=== PATIENT | male | born 1945 | race Two or more races ===

== ENCOUNTER 2021-04-07 07:53 | Inpatient (IN) | payer MEDICARE, OTHER ==
[~2021-04-07] VITALS: Ht 188 cm; Wt 75.3 kg
--- NOTE | 2021-04-07 08:00 | NUR ---
VENKATA [id number] FROM [facility] C/O R HIP 09/06 AND R KNEE PAIN 09/06 NON TRAUMATIC PER EMS "HE WAS JUST TRYING TO SIT IN HIS BED". SLY PEDAL PULSES PRESENT. IN ROOM AIR AND DENIES SOB. RESPIRATION REGULAR AND UNLABORED. WILL CONTINUE TO MONITOR THE PATIENT.
[2021-04-07] MEDS ORDERED: ONDANSETRON HCL/PF 4 MG/2 ML VIAL ONE (08:15)
[2021-04-07] MEDS ORDERED: MORPHINE SULFATE INJ 4 MG/ML DISP.SYRIN ONE (08:16)
--- NOTE | 2021-04-07 08:25 | NUR ---
IV LINE IS ESTABLISHED, BLOOD SPECIMEN COLLECTED AND SENT TO THE LAB. THE LINE IS SALINE LOCKED.
[2021-04-07] MEDS ORDERED: ONDANSETRON HCL/PF 4 MG/2 ML VIAL IV ONE (08:30)
[2021-04-07] MEDS ORDERED: MORPHINE SULFATE INJ 2 MG/ML DISP.SYRIN IV ONE (08:30)
--- NOTE | 2021-04-07 08:30 | NUR ---
X-RAY TECH AT THE BEDSIDE
--- NOTE | 2021-04-07 09:14 | NUR ---
Johnnie dunn in [facility] - 04/07/21 at 0935 by BRENT TRANSFERED DOC SIGNED BY PATIENT AND .
[2021-04-07 09:40] LABS: BASOPHILS % (AUTO) 0.2 % (0.0-2.0); HEMATOCRIT 44 % (39-51); HEMOGLOBIN 14.5 g/dL (13.5-17.5); LYMPHOCYTES # (AUTO) 0.8 K/uL (0.8-4.8); LYMPHOCYTES % (AUTO) 8.2 % (20.0-44.0); MEAN CORPUSCULAR HGB CONC 33 g/dl (31.0-36.0); MEAN CORPUSCULAR VOLUME 95 fL (80-96); MONOCYTES # (AUTO) 0.5 K/uL (0.1-1.30); MONOCYTES % (AUTO) 5.6 % (2.0-12.0); PLATELET COUNT (AUTO) 211 K/uL (150-450); RED BLOOD CELL COUNT(AUTO) 4.68 MIL/uL (4.5-6.0); WHITE BLOOD COUNT (AUTO) 9.3 K/uL (4.3-11.0)
[2021-04-07 09:47] LABS: CARBON DIOXIDE 24 mmol/L (21-32); CHLORIDE 103 mmol/L (98-107); GLUCOSE 161 mg/dL (74-106); POTASSIUM 4.5 mmol/L (3.5-5.1); SODIUM SERUM 141 mmol/L (136-145); UREA NITROGEN, BLOOD 25 mg/dL (7-18)
--- NOTE | 2021-04-07 09:56 | NUR ---
COVID SWAB DONE AND SENT TO THE [facility]
--- NOTE | 2021-04-07 11:20 | NUR ---
ORTHO DR. PATHAK SPEAKING WITH DR. BURRELL.
--- NOTE | 2021-04-07 11:45 | NUR ---
MOVE SHEET SUBMITTED AND CALLED FOR BED.
--- NOTE | 2021-04-07 13:47 | NUR ---
[facility] HEAD GREENSKEEPER FROM [facility] [phone]
--- NOTE | 2021-04-07 15:54 | NUR ---
[facility] SUPERVISOR FINISHING ROOM FROM [facility] [phone] ROBB TO CALL US BACK.
--- NOTE | 2021-04-07 16:47 | NUR ---
CALLED G[facility] TRAY SETTER FROM [facility] [phone] ROBB TO CALL US BACK. CALLED AGAIN
--- NOTE | 2021-04-07 17:26 | NUR ---
CALLED GARLAND TYPE ROLLING MACHINE OPERATOR FROM [facility] [phone] ROBB TO CALL US BACK. CALLED AGAIN
--- NOTE | 2021-04-07 18:20 | NUR ---
CALLED DR. ROBB [phone] AND TEXTED FOR ORDERS.
--- NOTE | 2021-04-07 18:53 | NUR ---
RECEIVED ADMITTING ORDERS FROM DR ROBB. THE ORDERS ARE READ BACK, VERIFIED. NOTED AND CARRIED OUT.
[2021-04-07] MEDS ORDERED: ACETAMINOPHEN 325 MG TABLET ONE (18:56)
[2021-04-07] MEDS ORDERED: hydrALAZINE HCL IV 20 MG VIAL IV SCH (19:00)
[2021-04-07] MEDS ORDERED: ACETAMINOPHEN 325 MG TABLET PO PRN (19:00)
[2021-04-07] MEDS ORDERED: ZOLPIDEM TARTRATE 5 MG TABLET PO PRN (19:00)
[2021-04-07] MEDS ORDERED: MORPHINE SULFATE INJ 2 MG/ML DISP.SYRIN IV SCH ×2 (19:00)
[2021-04-07] MEDS ORDERED: ONDANSETRON HCL/PF 4 MG/2 ML VIAL IV SCH (19:00)
[2021-04-07] MEDS ORDERED: CLONIDINE HCL 0.1 MG TABLET PO PRN (19:00)
--- NOTE | 2021-04-07 19:02 | NUR ---
GOT BED 309-1 AFTER 193
--- NOTE | 2021-04-07 19:44 | NUR ---
REPORT GIVEN TO NURSE ESTUARDO FOR BRIA
--- NOTE | 2021-04-07 19:52 | NUR ---
report given to flory loaiza
--- NOTE | 2021-04-07 20:15 | NUR ---
MS VEHICLE ASSEMBLY INSPECTOR NOTE PT TRANSPORTED VIA GURNEY TO UNIT AT THIS TIME. PT ADMITTED TO MS UNIT FROM ER FOR ADMITTING DX OF RIGHT PATELLAR FRACTURE. A/O X2-3. PT IS STABLE ON ROOM AIR. NO SOB OR S/S OF RESPIRATORY DISTRESS NOTED. PT DENIES ANY PAIN OR DISCOMFORT AT THIS TIME, WAS GIVEN MORPHINE IN THE ER FOR R KNEE PAIN. SKIN IS INTACT. IV ACCESS R AC 20 GAUGE SL, INTACT AND PATENT. PT ORIENTED TO UNIT, ROOM, AND STAFF. PT BELONGINGS LIST VERIFIED AND PUT IN CHART. SAFETY PRECAUTIONS IN PLACE. BED IN LOWEST LOCKED POSITION, HOB ELEVATED, SIDE RAILS UP X2, AND CALL LIGHT AND TABLE WITHIN REACH. WILL CONTINUE WITH PLAN OF CARE.
[2021-04-07 21:30] VITALS: BP 156/69
[2021-04-08 06:25] LABS: CALCIUM, SERUM 9.1 mg/dL (8.5-10.1); CARBON DIOXIDE 21 mmol/L (21-32); CHLORIDE 107 mmol/L (98-107); CREATININE 1.6 mg/dL (0.6-1.3); GLUCOSE 119 mg/dL (74-106); POTASSIUM 3.9 mmol/L (3.5-5.1); SODIUM SERUM 140 mmol/L (136-145); UREA NITROGEN, BLOOD 30 mg/dL (7-18)
[2021-04-08 06:34] LABS: BASOPHILS % (AUTO) 0.1 % (0.0-2.0); EOSINOPHILS % (AUTO) 0.5 % (0.0-6.0); HEMATOCRIT 42 % (39-51); LYMPHOCYTES # (AUTO) 1.5 K/uL (0.8-4.8); LYMPHOCYTES % (AUTO) 22.2 % (20.0-44.0); MEAN CORPUSCULAR HGB CONC 33 g/dl (31.0-36.0); MEAN CORPUSCULAR VOLUME 94 fL (80-96); MONOCYTES # (AUTO) 0.7 K/uL (0.1-1.30); MONOCYTES % (AUTO) 9.9 % (2.0-12.0); NEUTROPHILS # (AUTO) 4.5 K/uL (1.8-8.9); NEUTROPHILS % (AUTO) 67.3 % (43.0-81.0); PLATELET COUNT (AUTO) 179 K/uL (150-450); RED BLOOD CELL COUNT(AUTO) 4.47 MIL/uL (4.5-6.0); WHITE BLOOD COUNT (AUTO) 6.8 K/uL (4.3-11.0)
--- NOTE | 2021-04-08 06:34 | NUR ---
MS RN CLOSING NOTE PT AWAKE IN BED. A/O X2-3. PT IS STABLE ON ROOM AIR. NO SOB OR S/S OF RESPIRATORY DISTRESS NOTED. PT DENIES ANY PAIN OR DISCOMFORT AT THIS TIME. IV ACCESS R AC 20 GAUGE SL, INTACT AND PATENT. ALL NEEDS MET AT THIS TIME. SAFETY PRECAUTIONS IN PLACE AT ALL TIMES. BED IN LOWEST LOCKED POSITION, HOB ELEVATED, SIDE RAILS UP X2, AND CALL LIGHT AND TABLE WITHIN REACH. WILL ENDORSE TO ONCOMING NURSE FOR BRIA.
--- NOTE | 2021-04-08 07:19 | NUR ---
RN OPENING NOTE- PT AWAKE IN BED. A/O X2-3. PT IS STABLE ON ROOM AIR. NO SOB OR S/S OF RESPIRATORY DISTRESS NOTED. RT KNEE ELEVATED / PILLOWS. PT DENIES ANY PAIN OR DISCOMFORT AT THIS TIME. IV ACCESS R AC 20 GAUGE SL, INTACT AND PATENT. ALL NEEDS MET AT THIS TIME. SAFETY PRECAUTIONS IN PLACE AT ALL TIMES. BED IN LOWEST LOCKED POSITION, HOB ELEVATED, SIDE RAILS UP X2, AND CALL LIGHT AND TABLE WITHIN REACH. ASSIST / MONITOR
[2021-04-08 08:00] VITALS: BP 141/69
[2021-04-08] MEDS ORDERED: IV NS 0.9% 1,000 ML IV PRN (08:30)
[2021-04-08] MEDS ORDERED: ASPI-1169 PO (08:39)
[2021-04-08] MEDS ORDERED: ATOR80TA PO (08:39)
[2021-04-08] MEDS ORDERED: IPRA3AMP23 IH (08:39)
[2021-04-08] MEDS ORDERED: GABA-532 PO (08:39)
[2021-04-08] MEDS ORDERED: HEPA100D33 SUBCUT (08:39)
[2021-04-08] MEDS ORDERED: QUET25TA PO (08:39)
[2021-04-08] MEDS ORDERED: TAMS-12 PO (08:39)
[2021-04-08] MEDS ORDERED: FAMO20TA8 PO (08:39)
[2021-04-08] MEDS ORDERED: METO25TA6 PO (08:39)
[2021-04-08] MEDS ORDERED: NICO-676 TD (08:39)
[2021-04-08] MEDS: NICOTINE PATCH (14MG) 14 MG PATCH.TD24 TD SCH (10:51)
[2021-04-08] MEDS: METOPROLOL TARTRATE 25 MG TABLET PO SCH ×2 (10:52→17:07)
[2021-04-08] MEDS ORDERED: Medication Not On Formulary EA (Ipratropium/Albuterol Sulfate (Duoneb 2.5-0.5 Mg/3 Ml So IH SCH (11:00)
[2021-04-08] MEDS ORDERED: ALBUTEROL FS 2.5 MG/0.5 ML VIAL.NEB NEB PRN (11:00)
[2021-04-08] MEDS ORDERED: IPRATROPIUM NEB FS 0.5 MG/2.5 ML AMPUL.NEB NEB PRN (11:00)
[2021-04-08 11:03] LABS: ALBUMIN 3.3 g/dL (3.4-5.0); BILIRUBIN,DIRECT 0.1 mg/dL (0.0-0.2); BILIRUBIN,TOTAL 0.5 mg/dL (0.2-1.0); TOTAL PROTEIN, SERUM 7.4 g/dL (6.4-8.2)
[2021-04-08 11:13] LABS: THYROID STIMULATING HORMONE 1.726 uIU/mL (0.358-3.74)
[2021-04-08] MEDS: GABAPENTIN 100 MG CAPSULE PO SCH ×2 (13:08→17:08)
--- NOTE | 2021-04-08 14:50 | NUR ---
RN NOTE- PT ON NPO STATUS. NOTIFIED ORTHO MD ABOUT FOLLOW UP AND NPO STATUS. STATED AWARE OF EVAL AND I COULD PLACE PT ON REG DIET. COMPLIED
[2021-04-08 16:00] VITALS: BP 142/89
--- NOTE | 2021-04-08 18:38 | NUR ---
RN CLOSING NOTE- PT AWAKE IN BED. A/O X2-3. PT IS STABLE ON ROOM AIR. NO SOB OR S/S OF RESPIRATORY DISTRESS NOTED. RT KNEE ELEVATED / PILLOWS. PT DENIES ANY PAIN OR DISCOMFORT AT THIS TIME. IV ACCESS R AC 20 GAUGE SL, INTACT AND PATENT. PO INTAKE ON REGULAR DIET APPROX 50% . ALL NEEDS MET AT THIS TIME. SAFETY PRECAUTIONS IN PLACE AT ALL TIMES. BED IN LOWEST LOCKED POSITION, HOB ELEVATED, SIDE RAILS UP X2, AND CALL LIGHT AND TABLE WITHIN REACH. ASSIST / MONITOR
--- NOTE | 2021-04-08 19:40 | NUR ---
MS RN OPENING NOTE RECEIVED PATIENT AWAKE IN BED. A/O X 2-3 WITH FORGETFULNESS EPISODES. OVERESTIMATES LIMITATIONS, FALL RISK. PT IS STABLE ON ROOM AIR. NO SOB OR S/S OF RESPIRATORY DISTRESS NOTED. RT KNEE ELEVATED/PILLOWS. PT DENIES ANY PAIN OR DISCOMFORT AT THIS TIME. IV ACCESS RAC 20 GAUGE SL, INTACT AND PATENT. BED ALARM ON. SAFETY PRECAUTIONS IN PLACE AT ALL TIMES. BED IN LOWEST LOCKED POSITION, HOB ELEVATED, SIDE RAILS UP X2, AND CALL LIGHT AND TABLE WITHIN REACH. WILL CONTINUE TO MONITOR.
[2021-04-08 20:00] VITALS: BP 131/80
[2021-04-08 20:05] VITALS: BP 131/80
[2021-04-08] MEDS ORDERED: QUETIAPINE FUMARATE 25 MG TABLET PO SCH (22:00)
[2021-04-08] MEDS ORDERED: ATORVASTATIN 40 MG TABLET PO SCH (22:00)
--- NOTE | 2021-04-09 06:44 | NUR ---
MS RN CLOSING NOTE PT SLEEPING INTERMITTENTLY IN BED. A/O X2-3 WITH PERIODS OF FORGETFULNESS. PT IS STABLE ON ROOM AIR. NO SOB OR S/S OF RESPIRATORY DISTRESS NOTED. PT DENIES ANY PAIN OR DISCOMFORT AT THIS TIME. IV ACCESS R AC 20 GAUGE, INTACT AND PATENT, RUNNING WITH NS AT 125 ML/HR. ALL NEEDS MET AT THIS TIME. SAFETY PRECAUTIONS IN PLACE AT ALL TIMES. BED IN LOWEST LOCKED POSITION, HOB ELEVATED, BED ALARM ON. SIDE RAILS UP X2, AND CALL LIGHT AND TABLE WITHIN REACH. WILL ENDORSE TO ONCOMING NURSE FOR BRIA.
[2021-04-09 07:25] LABS: ALANINE AMINOTRANSFERASE 23 U/L (12-78); ALBUMIN 3.1 g/dL (3.4-5.0); ALKALINE PHOSPHATASE 75 U/L (46-116); ASPARTATE AMINOTRANSFERASE 31 U/L (15-37); BILIRUBIN,TOTAL 0.6 mg/dL (0.2-1.0); CALCIUM, SERUM 9.1 mg/dL (8.5-10.1); CARBON DIOXIDE 23 mmol/L (21-32); CHLORIDE 107 mmol/L (98-107); CREATININE 1.6 mg/dL (0.6-1.3); GLUCOSE 108 mg/dL (74-106); MAGNESIUM 2.6 mg/dL (1.8-2.4); PHOSPHORUS 3.1 mg/dL (2.5-4.9); SODIUM SERUM 140 mmol/L (136-145); UREA NITROGEN, BLOOD 38 mg/dL (7-18)
[2021-04-09 08:00] VITALS: BP 118/76
[2021-04-09] MEDS: METOPROLOL TARTRATE 25 MG TABLET PO SCH ×2 (09:00→17:16)
[2021-04-09] MEDS ORDERED: FAMOTIDINE (20 MG) 20 MG TABLET PO SCH (09:00)
[2021-04-09] MEDS ORDERED: TAMSULOSIN 0.4 MG CAP.SR.24H PO SCH (09:00)
[2021-04-09] MEDS: GABAPENTIN 100 MG CAPSULE PO SCH ×3 (09:00→17:16)
[2021-04-09] MEDS: NICOTINE PATCH (14MG) 14 MG PATCH.TD24 TD SCH (09:00)
--- NOTE | 2021-04-09 09:05 | NUR ---
m/s wool classer: notes pt refused breakfast and meds, offered 3x. instructed to call for assistance. will continue to monitor.
--- NOTE | 2021-04-09 09:11 | NUR ---
m/s line inspector: notes f/u made to dr. ferreira (ortho) and ask md if he wants p.t. eval and tx. order carried out.
[2021-04-09 09:51] LABS: BASOPHILS % (AUTO) 0.2 % (0.0-2.0); EOSINOPHILS % (AUTO) 0.8 % (0.0-6.0); HEMATOCRIT 42 % (39-51); HEMOGLOBIN 13.8 g/dL (13.5-17.5); LYMPHOCYTES % (AUTO) 25.5 % (20.0-44.0); MEAN CORPUSCULAR HGB CONC 33 g/dl (31.0-36.0); MEAN CORPUSCULAR VOLUME 94 fL (80-96); MONOCYTES # (AUTO) 0.9 K/uL (0.1-1.30); MONOCYTES % (AUTO) 11.9 % (2.0-12.0); NEUTROPHILS # (AUTO) 4.9 K/uL (1.8-8.9); NEUTROPHILS % (AUTO) 61.6 % (43.0-81.0); PLATELET COUNT (AUTO) 178 K/uL (150-450); RED BLOOD CELL COUNT(AUTO) 4.47 MIL/uL (4.5-6.0); WHITE BLOOD COUNT (AUTO) 7.9 K/uL (4.3-11.0)
--- NOTE | 2021-04-09 10:45 | NUR ---
m/s electric razor mechanic: p.t. keri p.t. at bedside for evaluation and tx.
--- NOTE | 2021-04-09 11:10 | NUR ---
m/s computer systems architect: md visit seen by dr. gonzalez and plan to d'c pt today. per dr. julien pt can be discharge and follow up with him or his primary surgeon per conversation via phone.
--- NOTE | 2021-04-09 12:10 | NUR ---
m/s vocational trainer: notes dr. gonzalez notified to verify d'c order to sn[facility] vs assisted living facility where pt came from. per dr. gonzalez, pt needs to go to snf. cn aware. case management to coordinate with [facility].
--- NOTE | 2021-04-09 14:00 | NUR ---
m/s distance education director: notes luigi (cm) called to let me know that dr. gonzalez wants pt to go back to his assisted living facility and [facility] caseworker will make arrangement. pt made aware.
--- NOTE | 2021-04-09 15:10 | NUR ---
m/s attendant child activity: [phone]. cristian (daughter) notified and made aware.
--- NOTE | 2021-04-09 15:55 | NUR ---
m/s teamcenter consultant: notes juany sims notified, spoke to leslie (admin) and informed her that pt to go back with knee immobilizer, eta [phone].
[2021-04-09 16:00] VITALS: BP 111/70
[2021-04-09 17:16] VITALS: BP 111/70
--- NOTE | 2021-04-09 18:50 | NUR ---
m/s general science teacher: notes informed pt that he needs know to wear his immobilizer when up with physical therapy to [facility] and to follow up with his own orthopedic or dr. ferreira. dr. ferreira's number provided on d'c papers. discharge instructions given to pt and verbalized understanding. awaiting for ambulance to [facility] the pt. eta between [phone]. needs attended. will continue to monitor.
--- NOTE | 2021-04-09 19:10 | NUR ---
m/s assistant professor of radiology: notes ambulance here and report given to one of the crew. h/l removed with tip intact. all d'c papers given to the crew.
--- NOTE | 2021-04-09 19:20 | NUR ---
m/s visual merchandising specialist: discharge discharge back to senior living in stable condition via gurney accompanied by 2 crew with valuables and knee immobilizer.
== END 2021-04-09 19:20 | DRG 562 ==
LOC: ER 07:58 → MED 19:55
PROVIDERS: ADMIT Internal Medicine; ATTEND Internal Medicine
DX: S82.001A Unspecified fracture of right patella, initial encounter for closed fracture (principal); N17.0 Acute kidney failure with tubular necrosis; M97.11XA Periprosthetic fracture around internal prosthetic right knee joint, initial encounter; G81.91 Hemiplegia, unspecified affecting right dominant side; I12.9 Hypertensive chronic kidney disease with stage 1 through stage 4 chronic kidney disease, or unspecified chronic kidney disease; N40.0 Benign prostatic hyperplasia without lower urinary tract symptoms; Z72.0 Tobacco use; I70.0 Atherosclerosis of aorta; R29.6 Repeated falls; Z91.81 History of falling; Y83.8 Other surgical procedures as the cause of abnormal reaction of the patient, or of later complication, without mention of misadventure at the time of the procedure; Y92.10 Unspecified residential institution as the place of occurrence of the external cause; X58.XXXA Exposure to other specified factors, initial encounter; N18.30 Chronic kidney disease, stage 3 unspecified
CPT/HCPCS: 36415; 71045-TC; 73502; 73564-TC; 73700-TC; 80048-TC; 80053-TC; 80076-TC; 83735-TC; 84100-TC; 84439-TC; 84443-TC; 85025-TC; 86850-TC; 87081-TC; 93307-TC; 97112-TC; 97530-TC; C9803; G0378; J2270; J2405; J7030

== ENCOUNTER 2024-05-07 17:45 | Emergency (ER) | payer OTHER ==
[~2024-05-07] VITALS: Ht 170.2 cm; Wt 78.5 kg
[~2024-05-07 17:45] MED LIST: ASPI-1169 PO; ATOR80TA PO; FAMO20TA8 PO; GABA-532 PO; HEPA100D33 SUBCUT; IPRA3AMP23 IH; METO25TA6 PO; NICO-676 TD; QUET25TA PO; TAMS-12 PO
[2024-05-07 17:51] VITALS: TEMP 97.9
[2024-05-07 18:00] VITALS: BP 122/81; O2SAT 100
[2024-05-07 18:56] LABS: BASOPHILS # (AUTO) 0.1 K/uL (0.0-0.2); BASOPHILS % (AUTO) 0.8 % (0.0-2.0); EOSINOPHILS # (AUTO) 0.2 K/uL (0.0-0.7); EOSINOPHILS % (AUTO) 1.7 % (0.0-6.0); HEMATOCRIT 37 % (39-51); HEMOGLOBIN 12.5 g/dL (13.5-17.5); LYMPHOCYTES # (AUTO) 2.8 K/uL (0.8-4.8); LYMPHOCYTES % (AUTO) 31.4 % (20.0-44.0); MEAN CORPUSCULAR HEMOGLOBIN 33 PG (26.0-33.0); MEAN CORPUSCULAR HGB CONC 34 g/dl (31.0-36.0); MEAN CORPUSCULAR VOLUME 95 fL (80-96); MONOCYTES # (AUTO) 0.7 K/uL (0.1-1.30); MONOCYTES % (AUTO) 7.9 % (2.0-12.0); NEUTROPHILS # (AUTO) 5.2 K/uL (1.8-8.9); NEUTROPHILS % (AUTO) 58.2 % (43.0-81.0); RED BLOOD CELL COUNT(AUTO) 3.85 MIL/uL (4.5-6.0); RED CELL DISTRIBUTION WIDTH 14.2 % (11.5-15.0); WHITE BLOOD COUNT (AUTO) 8.9 K/uL (4.3-11.0)
[2024-05-07 18:59] LABS: CALCIUM, SERUM 9.1 mg/dL (8.5-10.1); CREATININE 1.7 mg/dL (0.6-1.3); POTASSIUM 5.2 mmol/L (3.5-5.1)
[2024-05-07 19:13] LABS: ALBUMIN 3.3 g/dL (3.4-5.0); BILIRUBIN,DIRECT 0.2 mg/dL (0.0-0.2); BILIRUBIN,TOTAL 0.8 mg/dL (0.2-1.0); TOTAL PROTEIN, SERUM 6.8 g/dL (6.4-8.2)
[2024-05-07] MEDS ORDERED: ACET-2605 PO (20:14)
[2024-05-07] MEDS ORDERED: CEPH500T PO (20:14)
[2024-05-07] MEDS ORDERED: ONDANSETRON HCL/PF 4 MG/2 ML VIAL ONE (20:19)
[2024-05-07] MEDS ORDERED: CEPHALEXIN MONOHYDRATE 500 MG CAPSULE PO ONE (20:20)
[2024-05-07] MEDS ORDERED: MORPHINE SULFATE INJ 2 MG/ML DISP.SYRIN ONE (20:20)
[2024-05-07] MEDS: ONDANSETRON HCL/PF - ER 4 MG/2 ML VIAL IV ONE (20:25)
[2024-05-07] MEDS: MORPHINE SULFATE INJ 2 MG/ML DISP.SYRIN IV ONE (20:25)
[2024-05-07] MEDS: CEPHALEXIN MONOHYDRATE 500 MG CAPSULE PO ONE (20:25)
[2024-05-07 20:30] LABS: PLATELET COUNT (AUTO) 165 K/uL (150-450)
[2024-05-07 21:09] LABS: APPEARANCE,URINE CLEAR (CLEAR); BILIRUBIN,URINE NEGATIVE (NEGATIVE); BLOOD, URINE NEGATIVE Ery/uL (NEGATIVE); COLOR,URINE YELLOW (YELLOW); KETONES,URINE NEGATIVE (NEGATIVE); LEUKOCYTE ESTERASE ,URINE NEGATIVE (NEGATIVE); NITRITE, URINE NEGATIVE (NEGATIVE); PH,URINE 5.5 (5.0-8.0); PROTEIN,URINE NEGATIVE (NEGATIVE); UGLUCOSE 2+ mg/dL (NEGATIVE); UROBILINOGEN,URINE 0.2 EU/dL (0.2)
[2024-05-07 21:51] LABS: ADD URINE CULTURE NO; BACTERIA,URINE Rare /HPF (None Seen); RBC,URINE NONE SEEN /HPF (0-2); WBC,URINE NONE SEEN /HPF (0-3)
[2024-05-07 21:53] LABS: SQUAMOUS EPITHELIAL CELL,UR Rare /HPF (None Seen)
== END 2024-05-07 21:18 ==
LOC: ER 17:47
DX: L03.116 Cellulitis of left lower limb (principal); M79.661 Pain in right lower leg; M79.662 Pain in left lower leg; E87.5 Hyperkalemia; F17.200 Nicotine dependence, unspecified, uncomplicated; I13.0 Hypertensive heart and chronic kidney disease with heart failure and stage 1 through stage 4 chronic kidney disease, or unspecified chronic kidney disease; I50.9 Heart failure, unspecified; Z79.82 Long term (current) use of aspirin; Z79.899 Other long term (current) drug therapy; Z86.73 Personal history of transient ischemic attack (TIA), and cerebral infarction without residual deficits
CPT/HCPCS: 99284; 96374; 96375; 85025; 80048; 80076; 81001; 36415; 83880; J2405 ×2; J2270

== ENCOUNTER 2024-05-24 17:48 | Emergency (ER) | payer OTHER ==
[~2024-05-24] VITALS: Ht 180.3 cm; Wt 90.7 kg
[~2024-05-24 17:48] MED LIST changes: +ACET-2605 PO; +CEPH500T PO
[2024-05-24 18:56] LABS: BASOPHILS % (AUTO) 0.4 % (0.0-2.0); EOSINOPHILS # (AUTO) 0.1 K/uL (0.0-0.7); EOSINOPHILS % (AUTO) 1.9 % (0.0-6.0); HEMATOCRIT 37 % (39-51); HEMOGLOBIN 12.3 g/dL (13.5-17.5); LYMPHOCYTES # (AUTO) 2.5 K/uL (0.8-4.8); LYMPHOCYTES % (AUTO) 34.7 % (20.0-44.0); MEAN CORPUSCULAR HEMOGLOBIN 33 PG (26.0-33.0); MEAN CORPUSCULAR HGB CONC 34 g/dl (31.0-36.0); MEAN CORPUSCULAR VOLUME 97 fL (80-96); MONOCYTES # (AUTO) 0.6 K/uL (0.1-1.30); MONOCYTES % (AUTO) 8.9 % (2.0-12.0); NEUTROPHILS # (AUTO) 3.9 K/uL (1.8-8.9); NEUTROPHILS % (AUTO) 54.1 % (43.0-81.0); PLATELET COUNT (AUTO) 175 K/uL (150-450); RED BLOOD CELL COUNT(AUTO) 3.78 MIL/uL (4.5-6.0); RED CELL DISTRIBUTION WIDTH 14.6 % (11.5-15.0); WHITE BLOOD COUNT (AUTO) 7.2 K/uL (4.3-11.0)
[2024-05-24 19:14] LABS: CALCIUM, SERUM 8.5 mg/dL (8.5-10.1); CREATININE 1.8 mg/dL (0.6-1.3); POTASSIUM 4.4 mmol/L (3.5-5.1)
[2024-05-24 21:06] VITALS: BP 130/75; TEMP 97.9; O2SAT 97
== END 2024-05-24 21:07 ==
LOC: ER 17:51
DX: L98.499 Non-pressure chronic ulcer of skin of other sites with unspecified severity (principal); R60.0 Localized edema; F17.200 Nicotine dependence, unspecified, uncomplicated; I10 Essential (primary) hypertension; Z79.899 Other long term (current) drug therapy; Z79.82 Long term (current) use of aspirin; Z86.73 Personal history of transient ischemic attack (TIA), and cerebral infarction without residual deficits
CPT/HCPCS: 36415; 80048-TC; 83880; 85025-TC

== ENCOUNTER 2025-03-28 12:03 | Emergency (ER) | payer OTHER ==
[~2025-03-28] VITALS: Ht 180.3 cm; Wt 89.8 kg
[2025-03-28 12:09] VITALS: BP 113/68; TEMP 98; O2SAT 96
== END 2025-03-28 12:44 ==
LOC: ER 12:07
DX: L85.3 Xerosis cutis (principal); F17.200 Nicotine dependence, unspecified, uncomplicated; I10 Essential (primary) hypertension; Z79.899 Other long term (current) drug therapy; Z79.82 Long term (current) use of aspirin